=== PATIENT | male | born 1995 | race Caucasian/White ===

== ENCOUNTER 2019-01-16 19:09 | Emergency (ER) | payer BC ==
[2019-01-16] MEDS ORDERED: Lidocaine 2% Viscous Solution 15 ML Cup PO ONE (19:25)
--- NOTE | 2019-01-16 19:29 | EDM.PDOC ---
ED HPI GENERAL MEDICAL PROBLEM - General Chief Complaint: ENT Problem Stated Complaint: SORE THROAT Time Seen by Provider: 01/16/19 19:21 - History of Present Illness INITIAL COMMENTS - FREE TEXT/NARRATIVE: HISTORY AND PHYSICAL: History of present illness: The patient is a 23-year-old male with no stated medical problems who says that he has had a cough which is mostly dry and occasionally productive for the last 4-5 days and who did not get his influenza shot, and a sore throat for greater than 1 week. The patient had his tonsils removed as a child and has had no diarrhea but has had some nausea and one episode of vomiting. Is no abdominal pain chest pain or shortness of breath. He's not used much [id number] and says it is painful when he swallows so has not been drinking or eating very much today because of the discomfort. Girlfriend at bedside is saying that she had similar symptoms which started as a sore throat and that lasted for 2 or 3 days and now she does has a dry cough. Review of systems: As per history of present illness and below otherwise all systems reviewed and negative. Past medical history: As per history of present illness and as reviewed below otherwise noncontributory. Surgical history: As per history of present illness and as reviewed below otherwise noncontributory. Social history: No reported history of drug or alcohol abuse. Family history: As per history of present illness and as reviewed below otherwise noncontributory. Physical exam: General: Well-developed well-nourished man is nontoxic and vital signs were noted by me. The patient's voice is not hoarse or muffled but it is somewhat scratchy and he is not breathless on examination HEENT: Atraumatic, normocephalic, pupils reactive, negative for conjunctival pallor or scleral icterus, mucous membranes moist, throat clear of exudates but there is posterior oropharyngeal erythema, uvula is midline and very small, there is no cervical adenopathy or nuchal rigidity, neck supple, nontender, trachea midline. Lungs: Clear to auscultation, breath sounds equal bilaterally, chest nontender. Heart: S1S2, regular rhythm slightly tachycardic rate on my evaluation just above 100 no overt murmurs Abdomen: Soft, nondistended, nontender. NABS Pelvis: Deferred Genitourinary: Deferred. Rectal: Deferred. Extremities: Atraumatic, full range of motion without defects or deficits Neurovascular unremarkable. Neuro: Awake, alert, oriented. Cranial nerves II through XII unremarkable. Cerebellum unremarkable. Motor and sensory unremarkable throughout. Exam nonfocal. Diagnostics: Rapid strep influenza swab chest x-ray Therapeutics: Viscous lidocaine Please note after orders were placed and nursing was in evaluating the patient he has refused the influenza swab and the strep test. Discussed with the patient the negative chest x-ray in that this is likely viral but I cannot treat a throat infection and less I'm able to test for that. He states understanding and expressed to me that he has a terrible gag reflex and he doesn't want to do it. He is aware that he can use [id number] medications as he chooses and follow-up in the clinic. Impression: Viral URI with cough/pharyngitis Definitive disposition and diagnosis as appropriate pending reevaluation and review of above. throat Pain Score (Numeric/FACES): 8 - Related Data Allergies Allergy/AdvReac Type Severity Reaction Status Date / Time No Known Allergies Allergy Verified 01/16/19 19:16 Home Meds: Home Meds . [No Known Home Meds] 03/19/16 [History] Past Medical History - Past Health History Medical/Surgical History: Denies Medical/Surgical History HEENT History: Reports: None Cardiovascular History: Reports: None Respiratory History: Reports: None Gastrointestinal History: Reports: None Genitourinary History: Reports: None Musculoskeletal History: Reports: None Neurological History: Reports: None Psychiatric History: Reports: None Endocrine/Metabolic History: Reports: None Hematologic History: Reports: None Immunologic History: Reports: None Oncologic (Cancer) History: Reports: None Dermatologic History: Reports: None - Infectious Disease History Infectious Disease History: Reports: None - Past Surgical History Head Surgeries/Procedures: Reports: None Social & Family History - Family History Family Medical History: Noncontributory - Tobacco Use Smoking Status *Q: Never Smoker - Caffeine Use Caffeine Use: Reports: Soda - Recreational Drug Use Recreational Drug Use: No ED ROS GENERAL - Review of Systems Review Of Systems: ROS reveals no pertinent complaints other than HPI. ED EXAM, GENERAL - Physical Exam Exam: See Below (See dictation) Course - Vital Signs Last Recorded V/S: Last Vital Signs Temp 37.2 C 01/16/19 19:17 Pulse 104 H 01/16/19 19:17 Resp 18 01/16/19 19:17 BP 144/86 H 01/16/19 19:17 Pulse Ox 98 01/16/19 19:17 - Orders/Labs/Meds Meds: Medications Discontinued Medications Generic Name Dose Route Start Last Admin Trade Name Sheri PRN Reason Stop Dose Admin Lidocaine HCl 15 ml 01/16/19 19:25 01/16/19 19:37 Xylocaine 2% Viscous PO 01/16/19 19:26 15 ml ONETIME ONE Administration Departure - Departure Time of Disposition: 20:07 Disposition: Home, Self-Care 01 Condition: Good Clinical Impression: Pharyngitis Qualifiers: Pharyngitis/tonsillitis etiology: unspecified etiology Qualified Code(s): J02.9 - Acute pharyngitis, unspecified URI (upper respiratory infection) Qualifiers: URI type: unspecified URI Qualified Code(s): J06.9 - Acute upper respiratory infection, unspecified - Discharge Information Referrals: PCP,None [Primary Care Provider] - Forms: ED Department Discharge Additional Instructions: The following information is given to patients seen in the emergency department who are being discharged to home. This information is to outline your options for follow-up care. We provide all patients seen in our emergency department with a follow-up referral. The need for follow-up, as well as the timing and circumstances, are variable depending upon the specifics of your emergency department visit. If you don't have a primary care physician on staff, we will provide you with a referral. We always advise you to contact your personal physician following an emergency department visit to inform them of the circumstance of the visit and for follow-up with them and/or the need for any referrals to a consulting specialist. The emergency department will also refer you to a specialist when appropriate. This referral assures that you have the opportunity for followup care with a specialist. All of these measure are taken in an effort to provide you with optimal care, which includes your followup. Under all circumstances we always encourage you to contact your private physician who remains a resource for coordinating your care. When calling for followup care, please make the office aware that this follow-up is from your recent emergency room visit. If for any reason you are refused follow-up, please contact the [facility] emergency department at and ask to speak to the emergency department charge nurse. MAK[facility] Primary care- Internal [place] [address] Push hydration and use [id number] medications and preps for pain cough and any other symptoms you experience. Expect the symptoms to slowly improve over the next 7-10 days. Return to ER as needed and as discussed and also call the clinic and schedule a follow-up appointment with either your provider or one of hours for reevaluation and further care as needed.
--- NOTE | 2019-01-16 20:00 | CR ---
Indication: Chest pain. SOB Technique: Chest 2 views Comparison: None Findings/Impression: Cardiovascular and mediastinum: Upper limits of normal cardiac size which could be related to incomplete inspiration. Lungs and pleural spaces: Lungs are clear. No sign of infiltrate or mass. No sign of pleural effusion. No pneumothorax. Bones and soft tissues: No significant findings. Dictated by Chago Amin MD @ 01/16/2019 7:57:41 PM Dictated by: Chago Amin MD @ 01/16/2019 19:58:50 (Electronically Signed)
[2019-01-16 20:22] VITALS: BP 146/78
== END 2019-01-16 20:15 | disposition home or self-care (01) ==
LOC: MW.ED 19:09
DX: J02.9 Acute pharyngitis, unspecified (principal)
CPT/HCPCS: 71046; 99283; A9270

== ENCOUNTER 2019-09-07 12:55 | Emergency (ER) | payer BC ==
[2019-09-07] MEDS ORDERED: Diphtheria,Pertussis(Acell),Tetanus Vaccine 0.5 ML Syringe IM ONE (13:01)
[2019-09-07] MEDS ORDERED: Bacitracin Oint 1 GM U/D Packet TOP ONE (13:02)
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
[2019-09-07 13:13] VITALS: BP 154/96; PULSE 85
[2019-09-07] MEDS ORDERED: Ondansetron 4 MG/2 ML SDV IVPUSH ONE (13:15)
[2019-09-07] MEDS ORDERED: Sodium Chloride 0.9% 1,000 ML IV ONE (13:15)
== END 2019-09-07 13:30 | disposition home or self-care (01) ==
LOC: MW.ED 12:55
DX: R51 Headache (principal); M25.511 Pain in right shoulder; M25.512 Pain in left shoulder; M79.651 Pain in right thigh; V48.5XXA Car driver injured in noncollision transport accident in traffic accident, initial encounter; Y92.410 Unspecified street and highway as the place of occurrence of the external cause
CPT/HCPCS: 99283

== ENCOUNTER 2021-01-14 05:54 | Emergency (ER) | payer BC ==
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
[2021-01-14 10:07] VITALS: BP 123/51; PULSE 100
== END 2021-01-14 10:07 | disposition home or self-care (01) ==
LOC: MW.ED 05:54
DX: S60.221A Contusion of right hand, initial encounter (principal); F10.129 Alcohol abuse with intoxication, unspecified; Z72.0 Tobacco use; W22.8XXA Striking against or struck by other objects, initial encounter
CPT/HCPCS: 73110-26-RT; 73110-RT; 73130-26-RT; 73130-RT; 99283; 99284

== ENCOUNTER 2023-09-13 14:31 | Emergency (ER) | payer BC ==
[2023-09-13 15:00] VITALS: BP 144/88
[2023-09-13 15:06] VITALS: PULSE 95
== END 2023-09-13 15:04 | disposition home or self-care (01) ==
LOC: MW.ED 14:31
DX: H66.003 Acute suppurative otitis media without spontaneous rupture of ear drum, bilateral (principal); F17.210 Nicotine dependence, cigarettes, uncomplicated
CPT/HCPCS: 99283